=== PATIENT | male | born 1970 | race Caucasian/White ===

== ENCOUNTER 2021-06-01 11:41 | Day surgery (SDC) | payer OTHER, SELFPAY ==
--- NOTE | 2021-06-01 | PATH_ITS ---
[facility] Accession Number: [id number] . 01 Material submitted: . colon - SIGMOID COLON POLYP . 01 Clinical history: . SCREENING COLONOSCOPY . 02 Diagnosis: Sigmoid Colon Polyp, Biopsy: Traditional serrated adenoma. The polypectomy appears complate. MRV 06/04/2021 1205 Local . 02 Electronically signed: . Juan Perez MD, PhD, Pathologist NPI- [id number] . 01 Gross description: . Received in formalin and labeled with sigmoid colon polyp is one piece of larson tissue with a keratotic friable surface measuring 1.8 x 1.8 x 1.3 cm. The tissue is inked, serially sectioned into four slices and entirely submitted in cassettes A1 and A2. Cassette A1 contains two slices. Cassette A2 contains one slice and the aggregate amount of what would have been the fourth slice. ([id number]) /MRV 06/02/2021 0942 Local . 02 Pathologist provided ICD-10: D12.5 . 02 CPT . 072484 Performed at: 01 [facility] [address], [place], [place] [id number] MD Quinton Chacon MD Phone: [phone] Performed at: 02 [facility] [address] [place], [place] [id number] MD Yazmin Bravo MD Phone: [phone]
[2021-06-01 12:17] VITALS: BP 131/76; PULSE 63; RESP 16; TEMP 36.6; O2SAT 99; BMI 27.8
[2021-06-01 12:27] LABS: COVID19 -Nasal RAPID Negative (Negative)
[2021-06-01] MEDS: SODIUM CHLORIDE 0.9% 1,000 ML 84 ML IV (12:37)
--- NOTE | 2021-06-01 13:37 | PM.HP.1 ---
History of Present Illness History of Present Illness Date Patient Seen: 06/01/21 Time Patient Seen: 13:37 Chief complaint: SCREENING COLONOSCOPY Narrative: Indicated for colon cancer screening. Asymptomatic. Patient History Medical History Shoulder pain with history of repair of rotator cuff Family & Social History Social History: household members spouse Tobacco & Substance use: Smoking Status Never smoker alcohol intake frequency a few times a week Substance Use Type does not use Meds Home Medications and Allergies Home Medications Medication Instructions Recorded Confirmed Type minerals 1 tab PO DAILY 06/01/21 06/01/21 History Allergies Allergy/AdvReac Type Severity Reaction Status Date / Time bee venom protein (honey bee) Allergy Severe Anaphylaxis Verified 06/01/21 12:14 Review of Systems Review of Systems ROS: Yes All systems reviewed with the patient and are negative except as otherwise documented Exam Vital Signs (past 8 hours): - 06/01/21 12:17 Temperature 98 F Pulse Rate 63 Respiratory Rate 16 Blood Pressure 131/76 Pulse Oximetry 99 Oxygen Delivery Method Room Air Const General: cooperative and comfortable Orientation: alert HENFL Head: normocephalic Ears: external ears normal Nose: external nose normal Face and sinus: normal facial exam Mouth: oral mucosae normal Eyes General: appearance normal, both eyes and all related structures Neck Neck: normal visual inspection Chest Chest: normal inspection of the chest Resp Effort & Inspection: normal respiratory effort Auscultation: clear to auscultation bilaterally Cardio Rate: regular rate Rhythm: regular rhythm Heart Sounds: no murmurs GI Inspection: normal to inspection Palpation: soft and No tender Auscultation: normal bowel sounds Skin General: no rashes or lesions noted and No jaundice Neuro General: patient alert and moves all extremities Cognition: normal cognition Speech: speech normal Extrem General: no pedal edema Psych Appearance: grossly normal Objective Labs Labs: Laboratory Results - last 24 hr 06/01/21 11:55 SARS-CoV-2 (PCR) Negative Assessment & Plan Assessment & Plan narrative: 51-year-old male indicated for colon cancer screening. Asymptomatic. Colonoscopy is planned for today. Time Spent With Patient Critical Care time: I spent a total of [] minutes of critical care time on this patient's care today; this time is exclusive of procedural time.
--- NOTE | 2021-06-01 13:38 | PM.PREOP ---
Pre-operative Note COVID-19 COVID-19 status: Negative Result date/Date tested (Pos, Neg/Pending): 06/01/21 Interval Note History & Physical reviewed/Exam performed by Physician: Yes Changes to H&P: No H&P completed within 30 days and has changed as indicated here:: Today ASA Class (for procedural sedation): I
--- NOTE | 2021-06-01 14:05 | PM.OP.COLON ---
Operative Date/Time/Diagnoses Date of procedure: 06/01/21 Time of procedure: 14:06 Pre-op diagnosis: Colon cancer screening Post-op diagnosis: same Procedure & Clinicians Study performed: Colonoscopy with hot snare polypectomy and injection Same procedure as scheduled: Yes Indications: Colon cancer screening. Surgeon: Bakari Bass Procedure Notes SCOAP/Timeout: Done Procedure in detail: After the risks and benefits were explained, written and verbal informed consent was obtained. The patient was brought into the procedure room and placed into the left lateral decubitus position. Please see nurse second watch sergeant note for sedation details. Digital rectal examination was accomplished. The scope was introduced into the patient and advanced under direct visualization to the cecum as identified by the appendiceal orifice and ileocecal valve. The scope was slowly withdrawn to carefully examine the mucosa for any defects or lesions. Comprehensive imaging was accomplished throughout the rectum including the dentate line. The colon was decompressed, the scope was then removed from the patient who tolerated the procedure well. Bowel prep adequate Adult colonoscope Scope withdrawal time: 16 minutes Sedation minutes: 21 Complications: none Impression: There was a 25 mm multi lobulated irregular appearing pedunculated polyp in the sigmoid colon at approximately 18 cm from the anal verge. This was removed with hot snare polypectomy. We placed an approximately 0.5 cc Rosamaria ink tattoo adjacent this irregular lobulated polyp after was removed. The polypectomy stalk site looked fantastic no visible vessel. I initially considered placing a prophylactic clip over the site but the sugar clip would not oriented into an appropriate plane to place it over the stalk and I therefore abandoned this idea. No other pathology was appreciated throughout the remainder of the colon. Endoscopic diagnosis large pedunculated colon polyp Post-procedure Recommendations: Colonoscopy in 3 years Plan for aftercare: 1. Await histopathology 2. Repeat colonoscopy will likely be suggested for 3 years. Disposition: PACU
[2021-06-01 14:08] VITALS: BP 94/51; PULSE 70; RESP 14; TEMP 37; O2SAT 97
[2021-06-01 14:13] VITALS: BP 109/63; PULSE 71; RESP 13; O2SAT 98
[2021-06-01 14:17] VITALS: BP 113/64; PULSE 58; RESP 14; O2SAT 100
[2021-06-01 14:26] VITALS: BP 110/68; PULSE 62; RESP 16; O2SAT 100
== END 2021-06-01 14:40 | disposition home or self-care (01) ==
PROVIDERS: PCP Family Medicine; Referring Provider Internal Medicine Gastroenterology; Visit Provider Internal Medicine Gastroenterology
PROC: 0DJD8ZZ Inspection of Lower Intestinal Tract, Via Natural or Artificial Opening Endoscopic (ICD-10-PCS; CPT 45378; principal; 2021-06-01 14:30)
DX: Z12.11 Encounter for screening for malignant neoplasm of colon (principal); D12.5 Benign neoplasm of sigmoid colon
CPT/HCPCS: 45385; 45381; 87635; J2704

== ENCOUNTER → 2021-11-27 12:30 | Outpatient (CLI) | payer OTHER, SELFPAY ==
--- NOTE | 2021-11-27 12:33 | DI.MRI.S_ITS ---
PROCEDURE: MR KNEE LT WO CON INDICATIONS: LEFT KNEE PAIN TECHNIQUE: Noncontrast sagittal PD fast spin echo and T2 fast spin echo with fat saturation, sagittal 3-D FLASH with fat saturation; coronal T1 spin echo and PD fast spin echo with fat saturation, and axial PD fast spin echo with fat saturation through the knee. COMPARISON: None. FINDINGS: Image quality: Excellent. Menisci: Surfacing signal with deficiency in the posterior horn, medial meniscus, compatible with tear. The lateral meniscus is intact. Cruciate ligaments: The anterior and posterior cruciate ligaments appear intact. Medial structures: The medial collateral ligament appears intact. Visualized portions of the pes anserinus tendons appear normal. No abnormal bursal fluid. Lateral structures: The lateral collateral ligament, long and short heads of the biceps femoris tendon appear intact. The popliteus tendon appears normal. Iliotibial band appears normal. Anterior structures: The quadriceps and patellar tendons appear intact. Patellar alignment is normal. No edema in the infrapatellar fat pad. Bones and cartilage: No bone marrow contusions or fractures. Signal heterogeneity and fissuring of the patellar hyaline cartilage. The cartilage of the medial and lateral femorotibial compartments, as well as the patellofemoral compartment, otherwise appears normal in thickness. Joint space: Moderate knee joint fluid. No substantial popliteal fossa fluid. Normal appearing synovial plicae are incidentally noted. IMPRESSION: 1. Medial meniscal tear as detailed above. 2. Moderate joint effusion. Dictated by: Ramon Muro M.D. on 11/29/2021 at 8:36 Approved by: Ramon Muro M.D. on 11/29/2021 at 9:14
== END ==
PROVIDERS: PCP Family Medicine; Referring Provider Physician Assistant; Visit Provider Physician Assistant
DX: S83.242A Other tear of medial meniscus, current injury, left knee, initial encounter (principal); M25.462 Effusion, left knee; M25.562 Pain in left knee
CPT/HCPCS: 73721

== ENCOUNTER → 2022-07-02 11:00 | Outpatient (CLI) | payer OTHER, SELFPAY ==
--- NOTE | 2022-07-02 11:01 | DI.MRI.S_ITS ---
PROCEDURE: MR KNEE LT WO CON INDICATIONS: PAIN AFTER MENISCECTOMY LEFT KNEE TECHNIQUE: Noncontrast sagittal PD fast spin echo and T2 fast spin echo with fat saturation, sagittal 3-D FLASH with fat saturation; coronal T1 spin echo and PD fast spin echo with fat saturation, and axial PD fast spin echo with fat saturation through the knee. COMPARISON: [facility], MR, MR KNEE LT WO CON, 11/27/2021, 12:49. FINDINGS: Image quality: Excellent. Menisci: There is linear and amorphous high signal intensity traversing the inner, and middle thirds of the medial meniscal body and posterior horn, demonstrating inferior articular surface extension, indicating complex tearing, as before. Lateral meniscus is intact. Cruciate ligaments: The anterior and posterior cruciate ligaments appear intact. Medial structures: The medial collateral ligament appears intact. Small amount of fluid deep to the medial collateral ligament. Visualized portions of the pes anserinus tendons appear normal. Lateral structures: The lateral collateral ligament, long and short heads of the biceps femoris tendon appear intact. The popliteus tendon appears normal. Iliotibial band appears normal. Anterior structures: The quadriceps and patellar tendons appear intact. Patellar alignment is normal. No femoral trochlear dysplasia or ventral trochlear prominence. No edema in the infrapatellar fat pad. Bones and cartilage: No bone marrow contusions or fractures. There is mild articular cartilage loss diffusely overlying the weight-bearing aspects of the lateral femoral condyle and lateral tibial plateau. Moderate articular cartilage loss diffusely overlies the weight-bearing aspects of the medial femoral condyle and medial tibial plateau. Articular cartilage fibrillation overlies the medial and lateral patellar facets. Joint space: There is a small knee joint effusion and a trace Chery's cyst. Normal appearing synovial plicae are incidentally noted. IMPRESSION: 1. No significant change in medial meniscal tearing. 2. Medial and patellofemoral compartment articular cartilage loss. 3. Knee joint effusion and Chery's cyst. 4. Medial collateral ligament bursitis. Dictated by: Jereym Haider M.D. on 07/04/2022 at 8:32 Approved by: Jeremy Haider M.D. on 07/04/2022 at 8:35
== END ==
PROVIDERS: PCP Family Medicine; Referring Provider Orthopaedic Surgery; Visit Provider Orthopaedic Surgery
DX: M71.22 Synovial cyst of popliteal space [Baker], left knee (principal); M25.562 Pain in left knee; M25.462 Effusion, left knee; M23.92 Unspecified internal derangement of left knee
CPT/HCPCS: 73721

== ENCOUNTER → 2022-10-07 08:12 | Outpatient (CLI) | payer OTHER, SELFPAY ==
[2022-10-07 09:45] LABS: Add Manual Diff / Slide Review NO; Basophils Absolute Auto 100 /uL (0-100); Basophils Percent Auto 1.3 % (0-2); Eosinophils Absolute Auto 300 /uL (0-450); Eosinophils Percent Auto 7.1 % (2-4); Hematocrit 42.8 % (41-53); Hemoglobin 14.4 g/dL (13.5-17.5); Lymphocytes Absolute Auto 1700 /uL (1100-4500); Lymphocytes Percent Auto 37.1 % (25-40); Mean Corpuscular HGB Conc 33.7 % (30-36); Mean Corpuscular Hemoglobin 32.7 PG (26-34); Mean Corpuscular Volume 97.1 fL (80-100); Monocytes Absolute Auto 300 /uL (0-900); Monocytes Percent Auto 7.7 % (3-14); Neutrophils Absolute Auto 2100 /uL (1500-7000); Neutrophils Percent Auto 46.8 % (50-75); Platelet Count 218 X10^3/uL (150-400); Red Blood Cell Count 4.41 X10^6/uL (4.5-5.9); Red Cell Distribution Width 12.5 % (11.6-14.8); White Blood Cell Count 4.5 X10^3/uL (4.5-11.0)
[2022-10-07 10:46] LABS: BUN Creatinine Ratio 21.5 (6-22); Blood Urea Nitrogen 20 mg/dL (9-20); Calcium 10.8 mg/dL (8.4-10.2); Carbon Dioxide 28 mmol/L (22-32); Chloride 102 mmol/L (98-107); Estimated Glomerular Filt Rate > 60 mL/min (>60); Glucose 116 mg/dL (70-100); HEMOLYSIS < 15 (0-50); Potassium 4.8 mmol/L (3.4-5.1); Sodium 139 mmol/L (137-145)
== END ==
PROVIDERS: PCP Family Medicine; Referring Provider Orthopaedic Surgery; Visit Provider Orthopaedic Surgery
DX: Z01.818 Encounter for other preprocedural examination (principal); Z01.812 Encounter for preprocedural laboratory examination
CPT/HCPCS: 36415; 80048; 85025; 93005; 93010

== ENCOUNTER 2022-10-26 10:02 | Day surgery (SDC) | payer OTHER, SELFPAY ==
[2022-10-19 09:46] VITALS: BMI 31.0
[2022-10-26] VITALS (12 sets, daily range): BP systolic 109–145; BP diastolic 73–90; PULSE 77–108; RESP 9–18; TEMP 36.1–36.6; O2SAT 91–99; BMI 31.0
--- NOTE | 2022-10-26 06:00 | DI.RAD.S_ITS ---
PROCEDURE: XR KNEE LT 1TO2V INDICATIONS: prosthesis placement TECHNIQUE: 2 views of the knee were acquired. COMPARISON: None. FINDINGS: Bones: Patient is status post left medial compartment hemiarthroplasty. Surgical hardware appears in good position without evidence for hardware complication. There appears to be some air present within the patient's knee joint suggesting recent surgery. Clinical correlation is recommended. No fractures or dislocations. No suspicious bony lesions. Soft tissues: No suspicious soft tissue calcifications. IMPRESSION: 1. Satisfactory appearance of the left medial compartment hemiarthroplasty. 2. Air is present within the patient's knee joint suggesting recent surgery. Dictated by: Connor Crum M.D. on 10/26/2022 at 12:45 Approved by: Connor Crum M.D. on 10/26/2022 at 12:48
[2022-10-26] MEDS: LACTATED RINGERS 1,000 ML 42 ML IV (10:09)
--- NOTE | 2022-10-26 10:15 | PM.PREOP ---
Pre-operative Note Interval Note History & Physical reviewed/Exam performed by Physician: Yes Changes to H&P: No
--- NOTE | 2022-10-26 10:30 | SUR.PREOP ---
Dr Miller notified that patient can only take pills with food.
[2022-10-26] MEDS: CEFAZOLIN 2 GM/100 ML PREMIX 100 ML IV (10:47)
[2022-10-26] MEDS: TRANEXAMIC ACID 1,000 MG VIAL 1000 MG INJ ×2 (10:53→11:45)
--- NOTE | 2022-10-26 11:07 | SUR.OPER ---
Supine on padded OR bed. Pillow under head, arms secured on padded armboards <90 degree abduction. Safety belt across torso. Non-operative leg secured with tape over blanket over lower leg. Operative leg secured in DeMayo positioner. Foam padded brace at thigh of operative leg.
[2022-10-26] MEDS: BUPIVACAINE LIPOSOME 266 MG/20 ML VIAL INJ (11:16)
[2022-10-26] MEDS: MORPHINE 4 MG/ML INJ INJ (11:18)
[2022-10-26] MEDS: BUPIVACAINE 0.25% (PF) VIAL 60 ML INJ (11:19)
--- NOTE | 2022-10-26 12:03 | PM.OP.1 ---
Operative Date/Time/Diagnoses Date of procedure: 10/26/22 Time of procedure: 12:03 Pre-op diagnosis: Left knee osteoarthritis Post-op diagnosis: same Procedure & Clinicians Procedure: Left knee medial compartment arthroplasty Same procedure as scheduled: Yes Indications: The patient is a 52-year-old man who previously underwent a partial medial meniscectomy done by another surgeon with incomplete pain relief. He is gone on to have continued medial knee pain which has not responded to non operative measures. He has requested partial medial knee replacement after discussion the risks benefits and alternatives. He is aware that at his age it is likely he eventually will require a total knee replacement as his arthritis becomes more generalized. Risks discussed included but were not limited to: Need for revision, failure to improve pain, stiffness, infection, nerve damage, deep venous thrombosis, pulmonary embolism, stroke, myocardial infarction, permanent paralysis and . Surgeon: Joel Brooks Oven Attendant: Fe Morrow Click Yes if Unassisted: No Anesthesia Type: General and Local Operative Notes Findings: Residual posterior horn root tear of the medial meniscus with moderate arthritic change in the medial compartment. Closure Type: primary Specimen(s): none sent Prosthetic devices, grafts, tissues, transplants, or devices: Implants used in this procedure were manufactured by the [employer] and included a Journey 2 unicompartmental knee replacement with a size 7 left medial Oxinium femoral component, a size 7 left medial tibial base plate, and a 9 mm polyethylene tibial insert. Applied: implant(s) Estimated Blood Loss (mL): 50 Tourniquet time (min): 45 Procedure in detail: The patient was seen in the pre-operative area, where the left knee was identified as the operative site and this was marked with my initials. The patient received pre-operative antibiotics, and was taken to the operating room and placed on the operative table in the supine position. After satisfactory anesthesia, a multimedia instructional designer out was performed. The left leg was encircled with a tourniquet about the proximal thigh, and the leg was prepared from the toes to the tourniquet with ChloroPrep in the usual fashion and draped through sterile drapes. The leg was elevated and exsanguinated with Eschmark bandage and the tourniquet inflated to 250 mmHg pressure. The knee was approached through an approximately 10 cm incision from medial to the tibial tubercle to just at the superior pole of the patella on the medial side. The knee was entered through a mid vastus arthrotomy. The anterior soft tissues were removed. The tibial cutting guide was applied and 2 mm measured from the deepest portion of the medial tibial plateau. The slope was set to match the patient's tibial slope. The horizontal cut and vertical cut were created and the tibial fragment removed. The blocks were used to check that the gaps were balanced in flexion and extension. The distal femoral cut was made using a 9 mm block. The femur was then sized and the lug holes drilled followed by the posterior and chamfer cuts. The meniscus remnant was then removed. The tibia was sized with the trial and the lug holes drilled for the tibia. The posterior capsule was injected with part of a mixture of 60 ml 0.25% Marcaine mixed with 20 ml Exparel and 4 mg of morphine for post-operative pain control. The remainder of this mixture was injected into the capsule and subcutaneous tissues during cement curing. Trial femoral component and tibial inserts were placed in the knee placed through range of motion with good balance throughout the range with a 2 mm additional spacer. The trials were then removed. The bone was prepared with pulsatile lavage, and dried with a sponge. Cement was applied and the final prosthetics placed. Excess cement was removed during and after cement curing. After confirming there was no extruded cement posteriorly, the final tibial insert was placed. The knee was copiously irrigated and the tourniquet deflated. Hemostasis was obtained. The capsule was closed with interrupted # 2 polyester sutures in the capsular portion and a running 0 Vicryl in the muscular extension. The subcutaneous layer was closed with 3-0 Vicryl, and the skin with a running 3-0 V-Lock suture and Dermabond. An Aquacel Ag dressing was applied and the patient was taken to recovery having tolerated the procedure well. A skilled surgical aide was required during this procedure to provide positioning, exposure and retraction to protect vital structures. Without the services of Ms. Morrow, the procedure could not have been completed in a safe, expedient fashion. Complications: none Post-operative Condition: stable Disposition: PACU Plan for aftercare: The patient will be discharged home and will be on a standard outpatient unicompartmental arthroplasty recovery protocol.
[2022-10-26] MEDS: HYDROMORPHONE 2 MG INJ IV ×4 (12:29→12:54)
--- NOTE | 2022-10-26 12:35 | SUR.PHASEI ---
Dr. Miller notified regarding breathing heaviness. Patient denied chest pain. VS stable. No new orders.
--- NOTE | 2022-10-26 12:58 | SUR.PHASEI ---
Patient reported heaving sensation while breathing has improved but not resolved.
[2022-10-26] MEDS: OXYCODONE IR 5 MG TABLET PO ×2 (13:05→14:15)
[2022-10-26] MEDS: PREGABALIN 75 MG CAPSULE PO (14:15)
[2022-10-26] MEDS: CELECOXIB 200 MG CAPSULE PO (14:15)
--- NOTE | 2022-10-26 15:06 | SUR.PHASEII ---
pt encouraged to use IS and register 2800. Several attempts over remainder of discharge. 2500 - 2800. Resp even unlabored
== END 2022-10-26 14:20 | disposition home or self-care (01) ==
PROVIDERS: PCP Family Medicine; Referring Provider Orthopaedic Surgery; Visit Provider Orthopaedic Surgery
PROC: (CPT 27446; principal; 2022-10-26 12:15)
DX: M17.12 Unilateral primary osteoarthritis, left knee (principal)
CPT/HCPCS: 27447; 73560; C1776; C1713; C9290; J0690; J1100; J1170; J2250; J2270; J2405; J2704; J3010; J3490

== ENCOUNTER → 2023-08-04 07:47 | Outpatient (CLI) | payer OTHER, SELFPAY ==
--- NOTE | 2023-08-04 | DI.MRI.S_ITS ---
PROCEDURE: MR KNEE LT WO CON INDICATIONS: left knee pain TECHNIQUE: Noncontrast sagittal PD fast spin echo and T2 fast spin echo with fat saturation, sagittal 3-D FLASH with fat saturation; coronal T1 spin echo and PD fast spin echo with fat saturation, and axial PD fast spin echo with fat saturation through the knee. COMPARISON: [facility], CR, XR KNEE 4+ VIEWS LEFT, 12/12/2022, 14:17. [facility], MR, MR KNEE LT WO CON, 07/02/2022, 11:24. [facility], CR, XR KNEE 4+ VIEWS LEFT, 07/26/2023, 15:55. FINDINGS: Image quality: Excellent. Menisci: The medial meniscus is absent (medial hemiarthroplasty). Lateral meniscal extrusion. There is tear of the anterior root of the lateral meniscus. Cruciate ligaments: The anterior and posterior cruciate ligaments appear intact. There is mild mucoid degeneration of ACL. Medial structures: Hemiarthroplasty. The prosthesis components appear intact. Subtle marrow edema underneath the medial tibial plateau. There is chronic low-grade sprain of MCL and semimembranous tendon insertions. Lateral structures: The lateral collateral ligament, long and short heads of the biceps femoris tendon appear intact. The popliteus tendon appears normal. Iliotibial band appears normal. Anterior structures: Hemiarthroplasty in the medial compartment. The quadriceps and patellar tendons appear intact. Patellar alignment is normal. No femoral trochlear dysplasia or ventral trochlear prominence. No edema in the infrapatellar fat pad. Bones and cartilage: No bone marrow contusions or fractures. The cartilage of the medial and lateral femorotibial compartments, as well as the patellofemoral compartment, appears normal in thickness. Joint space: There is moderate knee joint effusion. There is a tiny Chery's cyst. Normal appearing synovial plicae are incidentally noted. IMPRESSION: 1. Postsurgical changes related to medial knee hemiarthroplasty. Subtle edema underneath the prosthetic tibial plateau is noted, nonspecific. 2. There is lateral meniscal extrusion and tear of the anterior root of the lateral meniscus. 3. Mild mucoid degeneration of ACL. 4. Moderate knee joint effusion. Dictated by: Denisse Wild M.D. on 08/04/2023 at 13:04 Approved by: Denisse Wild M.D. on 08/04/2023 at 13:13
== END ==
LOC: MRI 07:47
PROVIDERS: Referring Provider Orthopaedic Surgery; Visit Provider Orthopaedic Surgery
DX: S83.282A Other tear of lateral meniscus, current injury, left knee, initial encounter (principal); M25.462 Effusion, left knee; M25.562 Pain in left knee; Z96.652 Presence of left artificial knee joint
CPT/HCPCS: 73721

== ENCOUNTER → 2023-10-04 08:57 | Outpatient (CLI) | payer OTHER, SELFPAY ==
--- NOTE | 2023-10-04 | DI.NM.S_ITS ---
PROCEDURE: NM BONE SCAN WHOLE BODY RADIOPHARMACEUTICAL: 22 mCi Tc-99m MDP IV. INDICATIONS: Bilateral post-traumatic osteoarthritis of knee TECHNIQUE: Delayed whole-body scintigrams were obtained approximately 3-4 hours after intravenous injection of radiotracer. Anterior and posterior views were acquired from vertex to feet. Additional left and right oblique views of the knees were obtained. COMPARISON: [facility] [place], CR, XR KNEE 4+ VIEWS LEFT, 07/26/2023, 15:55. [facility], MR, MR KNEE LT WO CON, 08/04/2023, 8:12. FINDINGS: There is normal radiotracer excretion in the urinary system. Suspected right peroneal urinary contamination. Scattered degenerative changes are seen in the upper and lower extremities. A left knee medial arthroplasty is in place. There is moderate uptake surrounding the tibial portion and mild uptake surrounding the femoral portion. Moderate uptake is also seen in the lateral compartment. IMPRESSION: Ongoing degenerative changes in the lateral compartment of the left knee. Moderate uptake in the tibial and mild uptake in the femoral portion of the medial left knee arthroplasty can be seen with loosening or infection. If the surgery was recent, postsurgical changes can also result in increased uptake. If further evaluation is needed, consider 3 phase bone scan. Dictated by: Adebayo Yeh M.D. on 10/04/2023 at 15:20 Approved by: Adebayo Yeh M.D. on 10/04/2023 at 15:23
== END ==
LOC: NUCM 08:58
PROVIDERS: Referring Provider Orthopaedic Surgery; Visit Provider Orthopaedic Surgery
DX: M17.2 Bilateral post-traumatic osteoarthritis of knee (principal); Z96.652 Presence of left artificial knee joint
CPT/HCPCS: 78306; A9503

== ENCOUNTER → 2023-10-11 09:32 | Outpatient (CLI) | payer OTHER, SELFPAY ==
[2023-10-11 10:12] LABS: Add Manual Diff / Slide Review NO; Basophils Absolute Auto 100 /uL (0-100); Basophils Percent Auto 1.4 % (0-2); Eosinophils Absolute Auto 300 /uL (0-450); Eosinophils Percent Auto 5.1 % (2-4); Hematocrit 41.3 % (41-53); Hemoglobin 14.4 g/dL (13.5-17.5); Lymphocytes Absolute Auto 1700 /uL (1100-4500); Lymphocytes Percent Auto 34.3 % (25-40); Mean Corpuscular HGB Conc 34.8 % (30-36); Mean Corpuscular Hemoglobin 33.5 PG (26-34); Mean Corpuscular Volume 96.2 fL (80-100); Monocytes Absolute Auto 400 /uL (0-900); Monocytes Percent Auto 7.4 % (3-14); Neutrophils Absolute Auto 2600 /uL (1500-7000); Neutrophils Percent Auto 51.8 % (50-75); Platelet Count 197 X10^3/uL (150-400); Red Blood Cell Count 4.29 X10^6/uL (4.5-5.9); Red Cell Distribution Width 12.1 % (11.6-14.8)
[2023-10-11 10:25] LABS: BUN Creatinine Ratio 20.3 (6-22); Blood Urea Nitrogen 16 mg/dL (9-20); Calcium 10.8 mg/dL (8.4-10.2); Carbon Dioxide 25 mmol/L (22-32); Chloride 107 mmol/L (98-107); Estimated Glomerular Filt Rate > 60 mL/min (>60); Glucose 109 mg/dL (70-100); HEMOLYSIS < 15 (0-50); Potassium 4.7 mmol/L (3.4-5.1); Sodium 139 mmol/L (137-145)
[2023-10-11 10:29] LABS: Rheumatoid Factor 9.8 IU/mL (<12.0)
[2023-10-11 10:30] LABS: Appearance Urine UA CLEAR; Bilirubin Urine UA NEGATIVE (NEGATIVE); Color Urine UA YELLOW; Erythrocyte Sedimentation Rate 13 MM/HR (0-15); Glucose Urine UA NEGATIVE (Negative); Ketones Urine UA NEGATIVE (NEGATIVE); Leukocyte Esterase Urine UA NEGATIVE (NEGATIVE); Nitrite Urine UA NEGATIVE (Negative); Occult Blood Urine UA NEGATIVE (Negative); Protein Urine UA NEGATIVE (Negative); Specific Gravity Urine UA >=1.030 (1.000-1.035); Urobilinogen Urine UA 0.2 E.U./dL (0.2)
[2023-10-11 10:38] LABS: Bacteria Urine None Seen; Culture Indicated Urine Cult Not Indicated; RBC Urine None Seen (0-5/HPF); Squamous Epithelial Cell Urine 1-5 /HPF (0-5/HPF); Urine Volume 10mL (spun); WBC Urine 0-1/HPF (0-5/HPF)
[2023-10-11 10:42] LABS: Hemoglobin A1C% w Est Avg Glu 5.5 % (4.0-6.0)
== END ==
LOC: LAB 09:35
PROVIDERS: Referring Provider Orthopaedic Surgery; Visit Provider Orthopaedic Surgery
DX: Z01.818 Encounter for other preprocedural examination (principal); Z01.812 Encounter for preprocedural laboratory examination; R73.9 Hyperglycemia, unspecified; N39.0 Urinary tract infection, site not specified; R70.0 Elevated erythrocyte sedimentation rate; M05.9 Rheumatoid arthritis with rheumatoid factor, unspecified
CPT/HCPCS: 36415; 80048; 81001; 83036; 85025; 85651; 86430; 93005; 93010

== ENCOUNTER 2023-11-28 05:57 | Inpatient (IN) | payer OTHER, SELFPAY ==
[2023-11-27 12:32] VITALS: BMI 30.2
[2023-11-28] VITALS (22 sets, daily range): BP systolic 78–138; BP diastolic 40–89; PULSE 67–110; RESP 10–18; TEMP 36.4–36.8; O2SAT 92–100; BMI 30.2
--- NOTE | 2023-11-28 06:00 | DI.RAD.S_ITS ---
PROCEDURE: XR KNEE LT 1TO2V INDICATIONS: tka. TECHNIQUE: 2 view(s) of the knee acquired. COMPARISON: [facility], CR, XR KNEE LT 1TO2V, 10/26/2022, 12:17. FINDINGS: Bones: Patient is status post knee joint arthroplasty. Hardware components are in expected positions. Visualized bony structures are intact. Soft tissues: Overlying postoperative changes are noted. IMPRESSION: Expected post-operative appearance of a knee arthroplasty. Dictated by: Ari Diaz M.D. on 11/28/2023 at 12:49 Approved by: Ari Diaz M.D. on 11/28/2023 at 12:49
[2023-11-28] MEDS: VANCOMYCIN 1,000 MG/200 ML PIGGYBACK 200 MG IV (06:43)
[2023-11-28] MEDS: LACTATED RINGERS 1,000 ML 42 ML IV ×2 (06:49→09:36)
--- NOTE | 2023-11-28 07:40 | P.OP_ITS ---
Operative Date/Time/Diagnoses Date of procedure: 11/28/23 Time of procedure: 08:00 Pre-op diagnosis: painful left knee medial uni knee Post-op diagnosis: same Procedure & Clinicians Procedure: Revision left total knee arthroplasty Same procedure as scheduled: Yes Indications: The patient has had progressively worsening left knee pain. He has a very complicated history which started with a medial meniscus tear. He had knee arthroscopy but then had persistent substantial medial compartment symptoms. He had a unicompartment arthroplasty but continue to have ongoing fairly significant medial compartment symptoms and specifically medial tibial symptoms. Extensive workup for infection was negative. Total body bone scan suggested early tibial loosening or substantial increased activity in the medial tibial bone suggestive of loosening. Non-operative management has failed and the patient has requested revision to total knee replacement. The risks, benefits and alternatives to surgery were discussed with the patient prior to proceeding. Risks discussed included, but were not limited to, failure to relieve pain, stiffness, infection, nerve damage, deep venous thrombosis, pulmonary embolism, stroke, coma, heart attack, permanent paralysis and , as well as the potential need for eventual revision of the prosthetic. We specifically discussed in detail the risk of persistent pain despite adequate total knee arthroplasty. Surgeon: Melvi Fuentes International Marketing Specialist: Cesar Petersen Anesthesia Type: General and Peripheral nerve block Operative Notes Findings: Adequate left knee bone, mild to moderate joint effusion, no evidence of infection, no severe synovitis, unicompartment arthroplasty removed with minimal bone loss, multiple cultures sent Closure Type: primary Specimen(s): other (Multiple cultures) Prosthetic devices, grafts, tissues, transplants, or devices: Fuentes [employer] Nephew journey BCS 2 size 6 femur, size 4 tibia, +11 poly, 38 mm patella Estimated Blood Loss (mL): 250 Blood products transfused: none Tourniquet time (min): 120 Procedure in detail: The patient was seen in the pre-operative area, where the patient identified the left knee as the operative site and this was marked with my initials. The patient received pre-operative antibiotics, and was taken to the operating room and placed on the operative table in the supine position. After satisfactory anesthesia, a nuisance wildlife specialist out was performed. The left leg was encircled with a tourniquet about the proximal thigh, and the leg was prepared from the toes to the tourniquet with ChloroPrep in the usual fashion and draped through sterile drapes. The leg was elevated and exsanguinated with Eschmark bandage and the tourniquet inflated to [250] mmHg pressure. A PA was used during the procedure and was essential for intraoperative retraction and safe implantation of the components. The knee was approached through an approximately 22 cm incision centered over the patella and carried into the knee through a medial parapatellar arthrotomy. Dissection was carried out down through skin and subcutaneous tissues. An arthrotomy was performed. Fluid was sent for culture and sensitivity. The soft tissue was stripped some from the medial capsule and from the medial unicompartment arthroplasty. There was mild synovitis there was no evidence of deep infection or severe synovitis. Portion of the lateral meniscus was resected. Soft tissue was carefully mobilized around the patella the patella was measured with a caliper. Bone was resected from the patella and the patellar height was reconstituted with up an appropriate sized patellar component. A cover was then placed on the patella. A small amount of additional medial capsular scar and lateral meniscus was resected. The components were partially loosened using a combination of handheld osteotomes and a saw. Pins were placed in the femur and in the tibia for Cori navigation. The initial unicompartment components were left in the knee was meticulously navigated. We mapped and carefully defined the residual bone after planned component extraction. Patient was placed through a range of motion including stressed and unstressed strange of motion. A plan was developed to optimize stability and range of motion. The femoral and tibial component were then meticulously removed using a combination of a TBS saw and a multiple o steotomes in order to remove the component with minimal bone loss. It did take moderate amount of time to adequately free the components and I deflated the tourniquet at the 2 hour alivia and left it down during additional prep time. There was minimal distal femoral and posterior femoral bone loss. And there was minimal tibial bone loss. The distal femoral cut on the medial side was carefully checked with the bur and with a flap planer it looked like an appropriate distal femoral cut without excessive bone loss. The lateral side was resected using the Cori bur. It looked like an appropriate distal femoral cut. The rotation was assessed and the appropriate size femoral guide was placed on the distal femur and finishing cuts were made. I specifically checked the punch guide to make sure that there was adequate rotation of the femoral component and we also navigated it as we did the applied the 5 in 1 block. There was no evidence of notching. The anterior, posterior and chamfer cuts were then made. The posterior osteophytes and soft tissues were then removed. The posterior capsule was injected with part of a mixture of 60 ml 0.25% Marcaine mixed with 20 ml Exparel for post operative pain control. The remainder of this mixture was injected into the capsule and subcutaneous tissues during cement curing. The tibia was prepared by removing the tibial component and then using a saw to debulk some of the lateral tibia. The bur was used to check the medial resection level it was noted that a minimal amount of bone needed to be resected and that there appeared to be in appropriate medial tibial plateau cut with minimal bone resection. The bur was then used in the bur all mode in order to resect the lateral tibial plateau until all of the lateral bone had been adequately resected. The patient was placed in extension residual medial and lateral meniscus as well as any residual bone was carefully resected. [No] additional tibia was resected. Hemostasis was achieved especially posteriorly. Additional local was injected into the posterior capsule. The extension gap was assessed. The femoral component was trial was placed and the notch was finished. Trial tibial and femoral components were then placed and the knee placed through a range of motion. Range of motion was [0-130], with good stability throughout the range. The trials were then removed, and the tibia was finished. The tourniquet was reinflated during cementing. The bone was prepared with pulsatile lavage, and dried with a sponge. Cement was applied and the final prosthetics placed. Excess cement was removed during and after cement curing. A brief Betadine soak was performed. After confirming there was no extruded cement posteriorly, the final tibial insert was placed. The knee was copiously irrigated and the tourniquet deflated. Hemostasis was obtained with the Bovie cautery. The capsule was closed with interrupted # 1 suture. The subcutaneous layer was closed with barbed sutures, and the skin with a running 3-0 V-Lock suture and skin binh. A fer Dressing was applied and the patient was taken to recovery having tolerated the procedure well. Complications: none Post-operative Condition: stable Disposition: Acute Care Plan for aftercare: The patient will be maintained on a standard total knee replacement protocol with weight bearing as tolerated. The patient will receive aspirin and sequential compression devices for DVT prophylaxis. The patient will be discharged home when safe for the home environment.
--- NOTE | 2023-11-28 07:40 | PM.PREOP ---
Pre-operative Note Interval Note History & Physical reviewed/Exam performed by Physician: Yes Changes to H&P: No
--- NOTE | 2023-11-28 07:56 | SUR.PREOP ---
Block start time 0739 . Monitoring initiated and maintained throughout procedure. Oxygen and medications given by/per anesthesiologist. Patient remained stable throughout procedure, no adverse reactions noted. Block end time 0753.
[2023-11-28] MEDS: CEFAZOLIN 2 GM/100 ML PREMIX 100 ML IV ×2 (08:02→16:01)
[2023-11-28] MEDS: TRANEXAMIC ACID 1,000 MG VIAL 1000 MG INJ ×2 (08:05→10:39)
--- NOTE | 2023-11-28 08:31 | SUR.OPER ---
Supine on padded OR bed. Pillow under head, arms secured on padded armboards <90 degree abduction. Safety belt across torso. Non-operative leg secured with tape over blanket over lower leg. Operative leg secured in DeMayo/Daniel/Nathe positioner. Foam padded brace at thigh of operative leg.
[2023-11-28] MEDS: BUPIVACAINE 0.25% (PF) 60 ML, EPINEPHrine 0.3 MG INJ (08:53)
[2023-11-28] MEDS: BUPIVACAINE LIPOSOME 266 MG/20 ML VIAL INJ (08:54)
[2023-11-28] MEDS: ONDANSETRON 4 MG/2 ML INJ IV (12:16)
[2023-11-28] MEDS: hydrOXYzine 50 MG/ML INJ 25 MG IM (12:17)
[2023-11-28] MEDS: ACETAMINOPHEN IV 1,000 MG/100 ML VIAL 400 MG IV (12:22)
[2023-11-28] MEDS: HYDROMORPHONE 1 MG INJ IV ×2 (12:31→12:40)
[2023-11-28] MEDS: METOCLOPRAMIDE 10 MG/2 ML INJ IV (12:36)
[2023-11-28] MEDS: ePHEDrine 50 MG/ML VIAL 10 MG IV (12:57)
[2023-11-28] MEDS: OXYCODONE IR 5 MG TABLET PO ×4 (13:07→23:58)
[2023-11-28] MEDS: IBUPROFEN 400 MG TABLET PO ×2 (15:59→21:02)
[2023-11-28] MEDS: LACTATED RINGERS 1,000 ML 100 ML IV ×2 (15:59→21:03)
--- NOTE | 2023-11-28 17:11 | PT-IP ANOTE ---
PT eval order received and EMR reviewed. checked on pt and pt still does not have sensation and motor control back on LLE and not ready for PT eval. will f/u tomorrow.
--- NOTE | 2023-11-28 18:50 | PC.NURSE ---
Patient arrived to room 216 at 1330 this afternoon. He reports improved nausea and pain control. VSS afebrile weaned to RA. LLE with numbness but he is able to toe flex and pull back with 5/5/ strength. Estrada dressing with green light flashing, raul wrap C/D/I. He reports pain controlled with prn ibuprofen and oxycodone. He reports he still has numbness in LLE but wanting to get up to void. He is able to successfully void and ambulate with FWW SBA. Oriented to room, unit routine, IVF LR at 100ml/hr, bed alarm, call light in reach, SCD's in place, continuous monitoring.
[2023-11-28] MEDS: ASPIRIN EC 81 MG TABLET PO (21:03)
[2023-11-29] MEDS: CEFAZOLIN 2 GM/100 ML PREMIX 100 ML IV (00:15)
[2023-11-29] MEDS: IBUPROFEN 400 MG TABLET PO (05:46)
[2023-11-29] MEDS: OXYCODONE IR 5 MG TABLET PO ×2 (05:47→09:19)
--- NOTE | 2023-11-29 06:40 | P.DS_ITS ---
History of Present Illness History of Present Illness Date Patient Seen: 11/29/23 Time Patient Seen: 06:40 Chief complaint: INPT Narrative: Operative Date/Time/Diagnoses Date of procedure: 11/28/23 Time of procedure: 08:00 Pre-op diagnosis: painful left knee medial uni knee Post-op diagnosis: same Procedure & Clinicians Procedure: Revision left total knee arthroplasty Same procedure as scheduled: Yes Indications: The patient has had progressively worsening left knee pain. He has a very complicated history which started with a medial meniscus tear. He had knee arthroscopy but then had persistent substantial medial compartment symptoms. He had a unicompartment arthroplasty but continue to have ongoing fairly significant medial compartment symptoms and specifically medial tibial symptoms. Extensive workup for infection was negative. Total body bone scan suggested early tibial loosening or substantial increased activity in the medial tibial bone suggestive of loosening. Non-operative management has failed and the patient has requested revision to total knee replacement. The risks, benefits and alternatives to surgery were discussed with the patient prior to proceeding. Risks discussed included, but were not limited to, failure to relieve pain, stiffness, infection, nerve damage, deep venous thrombosis, pulmonary embolism, stroke, coma, heart attack, permanent paralysis and , as well as the potential need for eventual revision of the prosthetic. We specifically discussed in detail the risk of persistent pain despite adequate total knee arthroplasty. Surgeon: Melvi Fuentes Honing Machine Set Up Operator Tool: Cesar Petersen Anesthesia Type: General and Peripheral nerve block Operative Notes Findings: Adequate left knee bone, mild to moderate joint effusion, no evidence of infection, no severe synovitis, unicompartment arthroplasty removed with minimal bone loss, multiple cultures sent Closure Type: primary Specimen(s): other (Multiple cultures) Prosthetic devices, grafts, tissues, transplants, or devices: Fu[employer] journey BCS 2 size 6 femur, size 4 tibia, +11 poly, 38 mm patella Estimated Blood Loss (mL): 250 Blood products transfused: none Tourniquet time (min): 120 Discharge Providers Provider Date of admission: 11/28/23 05:57 Discharge Date: 11/29/23 Primary care physician: Risa PELLETIER Provider Consults: 11/27/23 16:39 Consult to Anesthesiology Routine Comment: Consulting Provider: Anesthesiologist Reason for consultation: Regional block for post operative pain control 11/28/23 14:16 Consult to Discharge Planning Routine Comment: Consult to Occupational Therapy Evaluate & Treat Comment: Physician Instructions: Evaluate and treat Consult to Physical Therapy Evaluate & Treat Comment: Physician Instructions: postop TKA protocol Discharge provider: Shanon Briscoe PA-C Summary Hospital Course Discharge Diagnosis: Painful left unicompartmental knee arthroplasty, s/p revision to left total knee arthroplasty Hospital Course: Mr Elizabeth's hospital course was unremarkable. On the morning of POD# 1, he was feeling well and wanted to go home. He was eating and voiding without difficulty and his pain was well-controlled with oral medication. He had not yet been evaluated by PT but had been up and walking the halls yesterday. Exam Vital Signs (past 8 hours): Oxygen Delivery Method Nasal Cannula Oxygen Flow Rate 0 Narrative Exam Narrative: 5/5 strength in hip flexors, quadriceps, hamstrings, DF, PF, EHL on left. Sensation to light touch intact throughout LLE. Calf soft, compressible, nontender. JOHNNY over SUMMER CDI; SUMMER functioning. Objective Labs 11/29/23 05:30 PFSH Medical History (Updated 11/27/23 @ 12:35 by Janeen Jiang RN) History of prosthetic unicompartmental arthroplasty of left knee (10/26/22) Osteoarthritis Headache, migraine Shoulder pain with history of repair of rotator cuff Surgical History (Updated 11/27/23 @ 13:08 by Janeen Jiang RN) Hx of removal of cyst History of arthroscopy of left shoulder History of arthroscopy of right shoulder Hx of arthroscopy of left knee (12/07/21) Social History household members: spouse and children Smoking Status: Former smoker alcohol intake: current Discharge Assessment & Plan Assessment and Plan Assessment: Painful left unicompartmental knee arthroplasty, s/p revision to left total knee arthroplasty Plan of Treatment: Discharge home, multimodal pain control (pt has rx meds), ASA 81 mg BID for VTE prophylaxis, outpt PT, f/u in office in 2 weeks as scheduled. Discharge Plan Discharge Plan Patient Disposition: Home Discharge orders & Medications Prescriptions: Continued sumatriptan succinate [Imitrex] 25 mg Tablet 50 mg PO Q2-4H PRN (Reason: Migraines) Rx Instructions: do not exceed 8 doses per 24 hrs naproxen 500 mg Tablet 500 mg PO BID PRN (Reason: Pain) acetaminophen 325 mg tablet 650 mg PO Q4H PRN (Reason: Pain) aspirin 81 mg tablet,delayed release (DR/EC) 81 mg PO DAILY pantoprazole 40 mg Tablet,Delayed Release (Dr/Ec) 40 mg PO DAILY PRN (Reason: Heartburn) Follow up/Referrals: ProviderRisa [Primary Care Provider] - Melvi Fuentes MD [Physician] - 12/12/23 10:20 am (Follow up w/ FABIAN Ny, at [facility] office in [place].) Diet/Activity/Treatments Diet: Diet as Tolerated Activity: Weightbearing as tolerated. Walk frequently! Cold/Heat Therapy: Ice to knee as needed for pain. Skin/Wound/Dressing Care Report to your healthcare provider any signs of infection, such as:: chills, fever, night sweats, unusual drainage and unusual redness Dressing: May remove JOHNNY wrap and shower on 12/01/2023. Leave SUMMER dressing in place until follow up in office. Battery light will start flashing in 5-7 days, at which point you can cut off battery, but leave dressing on. No bathing or otherwise soaking incision. Call the office if the dressing becomes saturated inside. Visit Report/Discharge Packet Instructions: DI for Knee Replacement, DI for Prescription Opioid Use Stand Alone Forms: Patient Portal/API, Stroke Signs & Symptoms, Surgery Discharge Discharge Data Primary Care Provider: ProviderRisa
[2023-11-29 06:45] LABS: Hematocrit 31.2 % (41-53); Hemoglobin 10.9 g/dL (13.5-17.5)
[2023-11-29] MEDS: ACETAMINOPHEN 325 MG TABLET 650 MG PO (08:15)
[2023-11-29] MEDS: DOCUSATE 100 MG CAPSULE PO (08:15)
[2023-11-29] MEDS: ASPIRIN EC 81 MG TABLET PO (08:16)
--- NOTE | 2023-11-29 08:50 | PT.IIE ---
Current Diagnoses Unilateral primary osteoarthritis, left knee (11/28/23) Mechanical loosening of internal left knee prosthetic joint, initial encounter (11/28/23) Surgery Performed Operation Date: 11/28/23 07:45 Actual Procedures p Total Knee Arthroplasty Revision - Robot uni to total(Left) - Melvi Fuentes MD Surgical History (Last Updated 11/27/23 @ 13:08 by Janeen Jiang, RN) History of arthroscopy of left shoulder History of arthroscopy of right shoulder Hx of arthroscopy of left knee (12/07/21) Hx of removal of cyst Medical History (Last Updated 11/27/23 @ 12:35 by Janeen Jiang RN) Headache, migraine History of prosthetic unicompartmental arthroplasty of left knee (10/26/22) Osteoarthritis Shoulder pain with history of repair of rotator cuff Physical Therapy Inpatient Evaluation/Re-Eval M1 PT/OT-IP Prior Functional Status Start: 11/29/23 08:57 Freq: NEEDED Status: Discharge Protocol: Document 11/29/23 08:58 [facility] (Rec: 11/29/23 09:07 [facility] [id number]) Medical Review Prior Functional Status Communication Independent Mobility and Gait Independent Activities of Daily Living and IADL's Indepedent with pain Social History Household Members spouse,children Living Arrangements House Number of Floors (Floors) One Floor Number of Stairs To Enter/Railing? 2 small step to enter. Does not have to use the room above the garage which has a flight of steps. Home Environment Standard Height Toilet,Walk in Shower,Tub/Shower,Built-In Shower Seat Additional Social History Comment Pt has crutches. M1 PT/OT-IP Prior Functional Status Start: 11/29/23 12:08 Freq: NEEDED Status: Active Protocol: Document 11/29/23 08:50 AB (Rec: 11/29/23 12:21 AB [id number]) Medical Review Prior Functional Status Medical History Reviewed Yes Communication able to make needs known Mobility and Gait pt stated that he was independent with all mobilities and ambulation without AD Social History Household Members spouse,children Living Arrangements House Number of Floors (Floors) Two Floors Number of Stairs To Enter/Railing? pt stays on main level of the house has 2 platform steps to enter the house Home Environment Standard Height Toilet,Walk in Shower,Built-In Shower Seat Home Equipment Crutches,Hand Held Shower Additional Social History Comment pt lives with spouse and his 31 y/o son who can assist him M2 PT-IP Current Condition Start: 11/29/23 12:08 Freq: NEEDED Status: Active Protocol: Document 11/29/23 08:50 AB (Rec: 11/29/23 12:21 AB [id number]) Physical Therapy Current Condition Current Condition Evaluation Date 11/29/23 Treatment Diagnosis s/p L TKA revision; difficulty in walking Onset Date 11/28/23 M3 PT-IP Subjective Start: 11/29/23 12:08 Freq: NEEDED Status: Active Protocol: Document 11/29/23 08:50 AB (Rec: 11/29/23 12:21 AB [id number]) Subjective Physical Therapy Visit Type Type Initial Evaluation Visit Start Time 08:50 Visit Stop Time 09:25 Number of COMMUNICATION MANAGER Visits 0 Physical Therapy Visit Comments Patient Comments agreeable to do PT Therapy Pain Assessment Pain When Pain Assessed At Rest Pain Present Pain Present Pain Reported Location Left Knee Intensity 6 Scale Used Numeric (0 - 10) Pain Management Techniques Distraction,Elevation, Modification of Treatment,Re- positioning,Timing of Activity with Medications M4 PT-IP Mobility and Gait Start: 11/29/23 12:08 Freq: NEEDED Status: Active Protocol: Document 11/29/23 08:50 AB (Rec: 11/29/23 12:21 AB [id number]) PT-Bed Mobility Assessment Supine to Sit Supine to Sit Standby Assistance PT-Transfer Assessment Sit to and From Stand Sit to and from Stand Standby Assistance,1 Person Assistance,Use of Upper Extremities Equipment Transfer Assistive Device Gait Belt,Axillary Crutches Orthotic/Prosthetic Devices or Brace: No Transfers Transfer Destination Chair Transfer Technique ambulated Transfer Ability Level of Assist Standby Assistance Comments Mobility Comments pt supine in bed and agreeable to do PT. c/o 6/10 L knee pain and pt asked for pain med . informed nurse. obtained PLOF and home set up info from pt. post-op folder provided to pt and reviewed contents. reviewed HEP. pt prefers using crutches for mobility. pt completed supine to sit SBA . able to sit on EOB sBA. completed sit to stand SBA and ambulated using crutches in room ~ 20 ft SBA. pt agreed to do stairs and ambulated int he hallway ~ 150 ft using fWW SBA. pt completed up/down platform step using crutches SBA. repeated x 2 sets. pt ambulated back to his room SBa using bilateral crutches and sat on the chair. positioned pt on the chair. call light and table placed within reach. Gait Assessment Gait Gait Assistance Required: Standby Assistance Distance (Feet) 150 Able to Maintain Weight Bearing Status Yes During Gait Assistive Devices Assistive Device Gait Belt,Axillary Crutches Orthotic/Prosthetic Devices or Brace: No Gait Deviations General Gait Pattern Decreased Stride Length, Decreased Feet Clearance Factors Limiting Gait Function Factors Limiting Gait Function Decreased Activity Tolerance, Decreased Strength,Poor Balance Stair Climbing Assessment Evaluation Level of Assist On Stairs Standby Assistance Devices Stair Climbing Assistive Devices Axillary Crutches Technique/Endurance Stair Climbing Direction Ascend and Descend Stair Climbing Technique Step to Step Number of Steps Climbed 1 Query Text: Stair Climbing Set # Repetitions (reps) 2 PT-Balance Assessment Sitting Balance and Reactions Static Sitting Balance Ability Normal Dynamic Sitting Balance Ability Normal Standing Balance and Reactions Static Standing Balance Ability Fair Dynamic Standing Balance Ability Fair Device Used crutches M5 PT-IP Objective Assessments Start: 11/29/23 12:08 Freq: NEEDED Status: Active Protocol: Document 11/29/23 08:50 AB (Rec: 11/29/23 12:21 AB [id number]) Orientation Orientation/Cognition Level of Alertness Alert Orientation Name,Situation Language Function Ability No Deficits Noted Safety Awareness Understands Safety Issues Memory Description No Deficits Noted Gross Range of Motion Lower Extremity ROM Assessment Left Impaired Impairments L knee flexion ~ 60 deg L knee extension: ~ 10 deg less to 0 Strength Lower Extremity Strength Assessment Left Impaired Hip 4-/5 Knee 3+/5 Coordination Assessment Gross Coordination Gross Coordination WNL Sensation Assessment Sensation Gross Sensation WNL Muscle Tone Muscle Tone WNL Yes M6 PT-IP Treatment Start: 11/29/23 12:08 Freq: NEEDED Status: Active Protocol: Document 11/29/23 08:50 AB (Rec: 11/29/23 12:21 AB [id number]) Physical Therapy Treatment Education Education Provided Precautions,Weight Bearing Status,Post-Op Packet,Safety M7 PT-IP Assessment and Plan Start: 11/29/23 12:08 Freq: NEEDED Status: Active Protocol: Document 11/29/23 08:50 AB (Rec: 11/29/23 12:21 AB [id number]) PT Summary Assessment and Plan Potential Rehabilitation Potential Good Status of Condition at Evaluation Stable Summary Impairments Pain,ROM,Strength,Balance, Coordination,Bed Mobility, Transfers,Gait,Activity Tolerance Assessment Summary pt is a 53 y/o M s/p L TKA revision POD 1. pt is WBAT on LLE. pt requiring SBA with mobility using bilateral axillary crutches and plans to go home with his family to assist him. pt may go home when medically stable. Goals Bed Mobility Goal Independent Transfer Goal Independent,Crutches Gait Goal Independent,Crutches Gait Distance 300 Other Goals up/down 2 platform steps without rails using cruthces mod i Days to Meet Goals 3 Frequency of Treatment Frequency Of Treatment Twice a Day Treatment Plan Physical Therapy Treatment Plan Bed Mobility Training,Transfer Training,Gait Training, Therapeutic Exercise,Balance Retraining,Post Op Education, Discharge Planning,Hot or Cold Pack,Neuromuscular Re-ed, Coordination Retraining,Manual Therapy Weight Bearing Status Weight Bearing Status Weight Bear as Tolerated Allowed Weight Bearing Amount (enter % LLE WBAT or #) (%) Recommendations To Nursing Amount of Assist Needed Standby Assistance Discharge Recommendations PT Discharge Recommendations Home with Assistance, Outpatient PT Transportation Needs at Discharge Private Vehicle
[2023-11-29 08:54] VITALS: BP 119/67; PULSE 71; RESP 16; TEMP 36.6; O2SAT 96
--- NOTE | 2023-11-29 08:55 | OT.IP.EVAL ---
Current Diagnoses Unilateral primary osteoarthritis, left knee (11/28/23) Mechanical loosening of internal left knee prosthetic joint, initial encounter (11/28/23) Surgery Performed Operation Date: 11/28/23 07:45 Actual Procedures p Total Knee Arthroplasty Revision - Robot uni to total(Left) - Melvi Fuentes MD Past Medical History (Last Updated 11/27/23 @ 12:35 by Janeen Jiang, RN) Headache, migraine History of prosthetic unicompartmental arthroplasty of left knee (10/26/22) Osteoarthritis Shoulder pain with history of repair of rotator cuff Surgical History (Last Updated 11/27/23 @ 13:08 by Janeen Jiang RN) History of arthroscopy of left shoulder History of arthroscopy of right shoulder Hx of arthroscopy of left knee (12/07/21) Hx of removal of cyst Occupational Therapy Inpatient Evaluation/Re-Eval M1 PT/OT-IP Prior Functional Status Start: 11/29/23 08:57 Freq: NEEDED Status: Active Protocol: Document 11/29/23 08:58 [facility] (Rec: 11/29/23 09:07 [facility] [id number]) Medical Review Prior Functional Status Communication Independent Mobility and Gait Independent Activities of Daily Living and IADL's Indepedent with pain Social History Household Members spouse,children Living Arrangements House Number of Floors (Floors) One Floor Number of Stairs To Enter/Railing? 2 small step to enter. Does not have to use the room above the garage which has a flight of steps. Home Environment Standard Height Toilet,Walk in Shower,Tub/Shower,Built-In Shower Seat Additional Social History Comment Pt has crutches. M2 OT-IP Current Condition Start: 11/29/23 08:57 Freq: Status: Active Protocol: Document 11/29/23 08:58 [facility] (Rec: 11/29/23 09:07 [facility] [id number]) Occupational Therapy Current Condition Current Condition Evaluation Date 11/29/23 Treatment Diagnosis S/P revision L TKA Diagnosis Onset Date 11/28/23 M3 OT- IP Subjective and Pain Start: 11/29/23 08:57 Freq: Status: Active Protocol: Document 11/29/23 08:58 [facility] (Rec: 11/29/23 09:07 [facility] [id number]) OT- Subjective Occupational Therapy Visit Type Type Initial Evaluation Visit Start Time 0840 Visit Stop Time 0855 Occupational Therapy Visit Comments Patient Comments Pt agreed to get dressed. Patient/Caregiver Goals To go home. OT Pain Assessment Pain When Pain Assessed At Rest Pain Present Pain Present Denied Pain M4 OT- IP ADL's Start: 11/29/23 08:57 Freq: Status: Active Protocol: Document 11/29/23 08:58 [facility] (Rec: 11/29/23 09:07 [facility] [id number]) OT KND-Sjzx-Fwhwxum General Evaluation Self-Feeding Ability Independent OT ADL-Grooming Comments OT Grooming Comments Not performed. OT ADL-Oral Care Comments Oral Care Comments Not performed. OT ADL-Dressing General Eval Upper Body Dressing Ability Independent Lower Body Dressing Ability Independent Comments OT Dressing Comments Pt aware to dress the LLE first and take out last. OT ADL-Toileting Comments OT Toileting Comments Pt state does not use the bathroom at night at all. Suggested pt to take the urinal in case. Educated pt to be mindful of his left knee positioning during ADL needs. OT ADL-Bathing Comments OT Bathing Comments Pt states aware to bag his leg for showering needs. M5 OT- IP IADL's Start: 11/29/23 08:57 Freq: Status: Active Protocol: Document 11/29/23 08:58 [facility] (Rec: 11/29/23 09:07 [facility] [id number]) OT-Instrumental Activities of Daily Living Deficits IADL Deficits Identified Deficits Home Safety Awareness Awareness of Need for Assistance at Home Good Awareness Ability to Problem Solve Emergency Able to Problem Solve Situations Medication Management Medication Management No Deficits Identified Money Management Money Management No Deficits Identified Meal Preparation Meal Preparation Caregiver Provides Assist Flat Lock Machine Operator Flat Lock Machine Operator Caregiver Provides Assist M6 OT- IP Functional Cognition Start: 11/29/23 08:57 Freq: Status: Active Protocol: Document 11/29/23 08:58 [facility] (Rec: 11/29/23 09:07 [facility] [id number]) Cognitive Factors Limiting Selfcare Function Cognitive Ability Level of Alertness Alert Patient Orientation Name,Age,Birthday,Month,Date, Year,Day of Week,Place, Situation Attention Span Ability Capable of Focused Attention, Capable of Sustained Attention Ability to Follow Commands Able to Follow Multi-Step Commands Cognitive Comments Cognitive Assessment Comments Intact, just needing one initial safety cue to push up from surfaces while coming to stand. OT- Vision and Hearing OT- Hearing Assessment OT- Hearing Assessment WFL OT- Vision Assessment Visual Attentiveness WFL Occular Pursuits WFL M7 OT- IP Mobility and Balance Start: 11/29/23 08:57 Freq: Status: Active Protocol: Document 11/29/23 08:58 [facility] (Rec: 11/29/23 09:07 [facility] [id number]) OT- Bed Mobility Assessment Rolling Level of Assistance Independent Supine to Sit Supine to Sit Assist Independent Sit to Supine Sit to Supine Assist Independent OT-Transfer Assessment Sit to and From Stand Sit to and from Stand Independent Transfers Transfer Ability Independent Technique Transfer Destination Bed Transfer Technique Stand Step Pivot Devices Transfer Assistive Devices None,Front Wheeled Walker Comments Mobility Comments Pt independent with bed mobility and use of RLE to assist to move LLE in and out of the bed. Independent with use of FWW in the room. OT- Balance Assessment Sitting Balance and Reactions Static Sitting Balance Ability Normal Dynamic Sitting Balance Ability Normal Standing Balance and Reactions Static Standing Balance Ability Normal Dynamic Standing Balance Ability Good M8 OT- IP Objective Assessments Start: 11/29/23 08:57 Freq: Status: Active Protocol: Document 11/29/23 08:58 [facility] (Rec: 11/29/23 09:07 [facility] [id number]) OT Strength Upper Extremity Strength Assessment Left Impaired Comments Strength Comments Pt states to be getting his left shoulder done in the future. M9 OT- IP Assessment and Plan Start: 11/29/23 08:57 Freq: Status: Active Protocol: Document 11/29/23 08:58 [facility] (Rec: 11/29/23 09:07 [facility] [id number]) OT Summary Assessment and Plan Potential Rehabilitation Potential Excellent Analytic Complexity at Evaluation Low Summary OT Impairments Range of Motion,Strength, Balance,Functional Mobility, Bathing Progress Towards Goals Progressing Toward Goals,Safe For Discharge Assessment Summary Pt low complexity and already able to dress himself and do ADl needs. Pt has a supportive to assist at home with any needs. Pt to go home with assist and have outpt PT. Goals Toileting Goal Independent Bathing Goal Independent Shower Transfer Goal Independent Days to Meet Goals 2 Frequency of Treatment Frequency Of Treatment Discharge Discharge Recommendations OT Discharge Recommendations Home with Assistance, Outpatient PT Transportation Needs at Discharge Private Vehicle
--- NOTE | 2023-11-29 09:01 | CM.DANOTE ---
Initial DCP Assessment Visit Note Reviewed EMR and team rounds for pt's medical status and updates. Pt was found to be alert/oriented, and able to discuss his plan/preferences for home D/C. He lives independently with his in their own home in [facility] with their children. Spouse will also transport him home once he's medically cleared for d/c. Payor: Yaya Torres Attending: Dr. Melvi Fuentes Pt is a 53 year-old M post-op day 1 following a complicated L-knee revision surgery. He had prior surgeries on this knee that ultimately failed as a result of loosening of the hardware, which has caused persistent pain and difficulty with mobility. He is recovering well postoperatively, has a plan for OP PT and Ortho f/u wound check appointments already scheduled. He will d/c home later this morning after working with therapies. DCP will continue to follow and monitor for any further evolving d/c needs. Discharge Planning/Care Management Advanced directive, confirm from FAMILY Start: 11/28/23 15:03 Freq: Q24H Status: Active Protocol: Document 11/28/23 19:00 (Rec: 11/29/23 02:00 [id number]) Advance Directive, confirm on record Time 20:15 Person contacted pt Copy received No CM Discharge Assessment Start: 11/29/23 08:59 Freq: Status: Active Protocol: Document 11/29/23 08:59 [facility] (Rec: 11/29/23 09:01 [facility] [id number]) Discharge Planning Assessment Assigned Supervisor Grading ELLYN Cortes Advance Directives? Yes Advance Directives on File No History Provided By Patient,Medical Record Has Patient been admitted in last 30 No days? Prior Living Arrangements House Household Members spouse,children Type of transporation used prior to Drives own vehicle admit Independent with ADL's Yes Is patient alert and oriented? Yes Caregiver for Another Yes: children Community Services used prior to Physical Therapy admission: DME Already Rented / Owned FWW / Walker Patient/Family Preference OP PT Therapy Comment No identified d/c needs at this time. Barriers to Discharge No Discharge Plan Home Community Services Physical Therapy Transportation Arrangement Spouse Referrals Initiated None needed Whiteboard Updated in Patient Room with Yes name and ext. # of Supervisor Grading Review Status In Process Please Provide Date Initial DC 11/29/23 Assessment Was Performed Pre-Anesthesia Assessment Start: 04/29/24 12:31 Freq: Status: Active Protocol: Document 11/27/23 12:32 [facility] (Rec: 11/27/23 13:23 [facility] [id number]) Pre-Anesthesia Assessment Patient Information Reviewed Via Phone Assessment Assessment Completed With Patient Diagnostic Results BMP/CMP,CBC,EKG,Urinalysis Comment Labs/EKG @ 10/11/23 Primary Care Provider Branch Metrics Seen Specialist in Last 12 Months Yes Specialist Seen Orthopedist Primary Language Ghanaian Supervisor Pairing And Inspecting Required No Height 170.18 cm Weight 87.543 kg Body Mass Index (BMI) 30.2 Hearing Ability Normal Visual Assist Glasses Dentition Type Teeth, Natural Present Barriers to Learning None Hx Anesthesia Reactions No: Pt does not want a spinal Hx Family Anesthesia Reaction No: pt adopted, no family hx available Hx Malignant Hyperthermia No: pt adopted, no family hx available Hx Blood Transfusions No Hx Blood Transfusion Reaction No Anesthesia Review Requested No Proofreader No alcohol intake current alcohol intake frequency a few times a week Smoking Status Former smoker Tobacco type cigarettes how long ago did patient quit smoking Quit cigarettes approx 1998, currently chews tobacco Substance Use Type does not use Pain Present Pain Reported Musculoskeletal Symptoms Abnormal Gait,Arthralgias,Back Pain,Difficulty Walking,Joint Pain History of Falling (Recent or History of No ) Patient is completely paralyzed or No completely immobile Mental Status Oriented to own ability Is patient on oxygen? No Does patient have ERICKSON/SOB No Hx Sleep Apnea No CPAP/BIPAP use not prescribed Currently Taking a Beta Camacho No Can You Climb a Flight of Stairs Without Yes SOB Hx Chest Pain No Hx SOB No Hx Syncope or Dizziness No Anti-Coagulant Therapy No Has a Photo Technologist No Cardiac Testing No Hx Pacemaker/ICD No Pacemaker Rep Required? No Cardiac Clearance Received No Diet Type At Home Regular Dysphagia No Gastrointestinal Symptoms None Chronic UTI No Urinary Catheter Present No Hx Urinary Self Catheterization No Diabetes No HgbA1C 5.5 Date 10/11/23 Hx Drug Resistant Organism No Presence of External or Internal Medical Yes: Left uni knee prosthesis Devices Received a COVID vaccine? No Marital Status Lives With spouse,children Current Living Arrangements House Number of Floors (Floors) One Floor Support System Spouse Does the Patient Have Assistance After Yes Surgery Patient Discharge Plan Description Return Home Comment Pt advised possible overnight length of stay per surgeon Feels Safe in Current Environment Yes Been Physically Hurt or Threatened By a No Person in Current Environment Do you have thoughts of harming yourself None or others? Are you currently considering suicide? No Do you have a plan to hurt yourself or No Plan others? Do You Have Any Spiritual Beliefs That No May Affect Your HC Choices? Do You Have Any Cultural Practices That No May Affect Your HC Choices? Comment Buddhism Who Can We Speak to About Patient's Care Family, friends Identifying Code for Release of Patient Declines to issue Information Health Care Proxy/Next of Kin Kimberli () Health Care Proxy Emergency Contact Name Kimberli () Emergency Contact Advance Directives? Yes Advance Directives on File No Requested Patient Bring Advanced Yes Directives DOS Power of Audio Visual Design Engineer Yes Power of Audio Visual Design Engineer Name Kimberli () Power of Audio Visual Design Engineer PAC Instructions Assistance for 24 hours post- op,Do not shave/clip surgical site,Durable medical equipment ,Medications to take/avoid, Nasal antibiotic,No ETOH/ petroleum product on skin DOS, NPO,Post-op transportation,Pre -surgical wash,Sensory aids, Sturdy shoes/comfortable clothes,Do not bring valuables and remove jewelry
--- NOTE | 2023-11-29 09:15 | PC.NURSE ---
Patient having some discomfort after working with physical therapy, will give him oxycodone for pain. Estrada dressing cdi with motor flashing green. He has worked with both OT and PT. He will go home today and he denies any numbness or tingling to extremities
== END 2023-11-29 10:58 | disposition home or self-care (01) | DRG 468 ==
PROVIDERS: Admitting Provider Orthopaedic Surgery; Referring Provider Orthopaedic Surgery; Visit Provider Orthopaedic Surgery
PROC: 0SRD0J9 Replacement of Left Knee Joint with Synthetic Substitute, Cemented, Open Approach (ICD-10-PCS; principal; 2023-11-28 07:45)
DX: T84.84XA Pain due to internal orthopedic prosthetic devices, implants and grafts, initial encounter (principal); M17.12 Unilateral primary osteoarthritis, left knee; M65.862 Other synovitis and tenosynovitis, left lower leg; G43.909 Migraine, unspecified, not intractable, without status migrainosus; K21.9 Gastro-esophageal reflux disease without esophagitis; S83.232S Complex tear of medial meniscus, current injury, left knee, sequela; Z96.652 Presence of left artificial knee joint; X58.XXXS Exposure to other specified factors, sequela
CPT/HCPCS: 36415; 64450; 73560; 85014; 85018; 87070; 87075; 87176; 87205; 97161; 97165; 97530; C1776; C9290; J0136; J0171; J0690; J1100; J1170; J2250; J2405; J2704; J2765; J3010; J3410

== ENCOUNTER 2025-05-07 08:44 | Day surgery (SDC) | payer OTHER, SELFPAY ==
[2025-04-02 14:38] VITALS: BMI 30.2
[2025-05-07 10:30] VITALS: BP 132/87; PULSE 59; RESP 16; TEMP 36.3; O2SAT 97
[2025-05-07] MEDS: LACTATED RINGERS 1,000 ML 42 ML IV (10:33)
--- NOTE | 2025-05-07 10:40 | PM.HP.IH.1 ---
History of Present Illness History of Present Illness Date Patient Seen: 05/07/[address] [facility] Medical History (Updated 11/27/23 @ 12:35 by Janeen Jiang RN) History of prosthetic unicompartmental arthroplasty of left knee (10/26/22) Osteoarthritis Headache, migraine Shoulder pain with history of repair of rotator cuff Surgical History (Updated 11/27/23 @ 13:08 by Janeen Jiang RN) Hx of removal of cyst History of arthroscopy of left shoulder History of arthroscopy of right shoulder Hx of arthroscopy of left knee (12/07/21) Social History household members: spouse and children Smoking Status: Former smoker alcohol intake: current Meds Home Medications and Allergies Home Medications ?Medication ?Instructions ?Recorded ?Confirmed ?Type pantoprazole 40 mg tablet,delayed 40 mg PO DAILY PRN Heartburn 10/26/22 05/07/25 History release aspirin 81 mg tablet,delayed 81 mg PO DAILY 11/27/23 05/07/25 History release naproxen 500 mg tablet 500 mg PO BID PRN Pain 11/27/23 05/07/25 History sumatriptan succinate 25 mg tablet 50 mg PO Q2-4H PRN Migraines 11/27/23 05/07/25 History (Imitrex) Allergies Allergy/AdvReac Type Severity Reaction Status Date / Time bee venom protein (honey bee) Allergy Severe Anaphylaxis Verified 05/07/25 10:25 Exam Vital Signs (past 8 hours): - 05/07/25 10:30 Temperature 97.4 F L Pulse Rate 59 L Respiratory Rate 16 Blood Pressure 132/87 Pulse Oximetry 97 Oxygen Delivery Method Room Air Oxygen Delivery Method Room Air Narrative Exam Narrative: Oropharynx free of lesions Chest clear to auscultation percussion Cardiac exam reveals no S3 or murmur Assessment & Plan Assessment & Plan narrative: History of adenomatous colon polyps need for follow-up colonoscopy. Risks, benefits, alternatives have been explained. Time-Based Coding :: [TOTAL MINUTES] spent with patient and on the chart (including review of chart, obtaining history, exam, reviewing outside data, placing orders, documenting exam and treatment plan, and counseling patient) on [DATE]. PROFEE Obstetrics Specialist Document charge(s): No
--- NOTE | 2025-05-07 10:41 | PM.OP.COLON ---
Operative Date/Time/Diagnoses Date of procedure: 05/07/25 Time of procedure: 11:29 Pre-op diagnosis: See indication and findings Post-op diagnosis: same Procedure & Clinicians Study performed: Colonoscopy Same procedure(s) as scheduled: Yes Indications: Follow-up adenomatous colon polyps Surgeon: Jazmin Downing Anesthesia Type: Other Procedure Notes Procedure in detail: After informed consent was obtained the patient was placed in left lateral decubitus position. The video colonoscope was introduced the rectum slowly advanced cecum. Preparation was good. On slow withdrawal mucosa was carefully examined. The scope was removed. The patient tolerated procedure well. Blood loss none Complications none Sedation mac Findings 1. Normal colonoscopy to cecum Patient should have follow-up colonoscopy in 5-7 years.
[2025-05-07 11:33] VITALS: BP 126/79; PULSE 85; RESP 16; TEMP 36.2; O2SAT 100
[2025-05-07 11:35] VITALS: BP 125/71; PULSE 75; RESP 16; O2SAT 98
[2025-05-07 11:40] VITALS: BP 127/74; PULSE 73; RESP 16; TEMP 36.2; O2SAT 97
[2025-05-07 11:50] VITALS: BP 133/88; PULSE 71; RESP 16; TEMP 36.3; O2SAT 97
== END 2025-05-07 11:57 | disposition home or self-care (01) ==
PROVIDERS: Referring Provider Internal Medicine Gastroenterology; Visit Provider Internal Medicine Gastroenterology
PROC: 0DJD8ZZ Inspection of Lower Intestinal Tract, Via Natural or Artificial Opening Endoscopic (ICD-10-PCS; CPT 45378; principal; 2025-05-07 10:30)
DX: Z12.11 Encounter for screening for malignant neoplasm of colon (principal); Z86.0101 Personal history of adenomatous and serrated colon polyps; Z87.891 Personal history of nicotine dependence
CPT/HCPCS: 45378; J2704; J7120